=== PATIENT | male | born 1940 | race Caucasian/White ===

== ENCOUNTER 2019-10-25 11:05 | Inpatient (IN) | payer MEDICARE ==
[~2019-10-25] VITALS: Ht 167.6 cm; Wt 87.0 kg
[~2019-10-25 11:05] MED LIST: ASPIRIN EC81 MG PO; ATORVASTATIN CA20 MG PO; CIPRO XR500 M2 PO; CIPROFLOXACIN250 MG PO; CIPROFLOXACN500 MG PO; DILAUDID 2MG2 MG/TA1 PO; DITROPAN PO; FISH OIL1000 MG PO; GLIPIZIDE10 MG PO; JANUVIA100 MG PO; LANTUS100 MG/ML SC; LISINOPRIL20 MG PO; LORTAB 5/3255 MG PO; METFORMIN500 MG PO
--- NOTE | 2019-10-25 11:36 | NUR ---
PT TO ROOM 14 W/STEADY GAIT.
--- NOTE | 2019-10-25 12:00 | NUR ---
DR LYON AT BEDSIDE FOR ASSESSMENT
--- NOTE | 2019-10-25 12:45 | NUR ---
PT STARTED PO CONTRAST AT THIS TIME; TEACHING PROVIDED; MONITORING DEVICES IN PLACE; VSS; CALL LIGHT WITHIN REACH; WILL CONTINUE TO MONITOR
[2019-10-25 12:53] LABS: HEMOGLOBIN 14.5 g/dl (14.0-18.0); IMMATURE GRANULOCYTES 0.6 % (0.0-5.0); MEAN CORPUSCULAR HGB 32.7 pG CALC (26.0-32.0); NEUT# 8.89 thou/uL (1.82-7.42); RED BLOOD COUNT 4.44 mill/uL (4.70-6.10); RED CELL DISTRI WIDTH 13.3 % (11.5-15.5)
[2019-10-25 12:57] LABS: MEAN CELL VOLUME 99.1 fL CALC (80.0-100.0)
[2019-10-25 13:07] LABS: ALBUMIN 4.9 g/dL (3.2-5.0); POTASSIUM 3.9 mmol/l (3.5-5.1)
[2019-10-25 13:08] LABS: BILIRUBIN, TOTAL 0.6 mg/dL (0.0-1.4); CREATININE 2.6 mg/dL (0.7-1.3); TOTAL PROTEIN 9.2 g/dL (6.3-8.2)
--- NOTE | 2019-10-25 13:28 | NUR ---
PT DRINKING PO CONTRAST; TOLERATING WELL; VSS; PT ADVISED OF CONTINUED WAIT TIME; DENIES ABD PAIN OR N/V AT THIS TIME; CALL LIGHT WITHIN REACH; WILL CONTINUE TO MONITOR
--- NOTE | 2019-10-25 13:50 | NUR ---
PT MEDICATED AT THIS TIME FOR NAUSEA PER MAR;
[2019-10-25] MEDS ORDERED: NOVOLIN 70/30 F1 INJ SC (13:53)
[2019-10-25] MEDS ORDERED: FERRAPLUS 90 PO (13:54)
[2019-10-25] MEDS ORDERED: B COMPLE2 PO (13:55)
[2019-10-25] MEDS ORDERED: AMLODIPINE BESY10 MG PO (13:55)
[2019-10-25] MEDS ORDERED: SERTRALINE25 MG PO (13:56)
--- NOTE | 2019-10-25 14:50 | NUR ---
PT TO CT AT THIS TIME IN STABLE CONDITION
--- NOTE | 2019-10-25 16:50 | NUR ---
PT AMB TO BR TO EMPTY COLOSTOMY; AMB WITH STEADY GAIT
--- NOTE | 2019-10-25 17:50 | NUR ---
PT ADVISED OF CONTINUED WAIT TIME; DENIES ANY PAIN, N/V
--- NOTE | 2019-10-25 18:10 | NUR ---
Admission Note Report Given to: JOSE VASQUEZ Transported by: X Wheelchair Stretcher Transported with: X Nurse Transporter X Patent IV O2 [employer] Worker Location: ICU X [facility]
--- NOTE | 2019-10-25 18:21 | NUR ---
REPORT RECEIVED FROM MABEL IN ED, PT ARRIVED ON UNIT @ 181 TRANSPORTED BY ED STAFF VIA W/C AND SETTLED IN BED. ALERT AND ORIENTED X 3, DENIES PAIN AT THIS TIME, ORIENTED TO ROOM AND CALL [facility]. COLOSTOMY IN PLACE TO LEFT ABDOMEN AND UROSTOMY IN PLACE TO R. ABD. NEEDS ADDRESS, WILL CONTINUE TO MONITOR.
[2019-10-25 19:25] VITALS: BP 131/74
--- NOTE | 2019-10-25 19:44 | NUR ---
PT C/O BEING VERY THIRSTY AND REQUESTING ICE CHIPS, NO IVF ORDERED, DR TREJO CONTACTED VIA PHONE, GAVE ORDERS FOR IV FLUIDS AND CLEAR LIQUID DIET.
--- NOTE | 2019-10-25 20:20 | NUR ---
PT RESTING IN BED, NO SIGNS OF DISTRESS NOTED, RESP EVEN AND UNLABORED. PT ALERT AND ORIENTED X3, DISCUSSED POC, PT DENIES ANY PAIN OR DISCOMFORT AT THIS TIME. STATES HE HAS HAD 5 BM'S SINCE ORAL CONTRAST. DAYSHIFT SPOKE WITH MAYA, DIET INCREASED TO CLEAR. PT APPRECIATIVE. PT HAS AN ILEOSTOMY AND UROSTOMY. ASSESSMENT COMPLETED. CALL LIGHT IN REACH,CONTINUE TO MONITOR.
--- NOTE | 2019-10-25 22:46 | NUR ---
URINE SPECIMEN SENT TO LAB.
[2019-10-25 22:59] LABS: URINE BILIRUBIN - DIPSTICK NEGATIVE (NEGATIVE); URINE BLOOD DIPSTICK SMALL (NEGATIVE); URINE COLOR YELLOW; URINE GLUCOSE - DIPSTICK NEGATIVE (NEGATIVE); URINE KETONE NEGATIVE (NEGATIVE); URINE PH 6.5 (4.5-8.0); URINE PROTEIN - DIPSTICK >=300 mg/dL (NEG-TRACE); URINE UROBILINOGEN - DIPSTICK 0.2 E.U./dL (0.2)
[2019-10-25 23:06] LABS: URINE LEUK ESTERASE MODERATE (NEGATIVE)
[2019-10-25 23:07] LABS: URINE BACTERIA MANY hpf; URINE EPITHELIAL CELLS MODERATE EPI/hpf (0-FEW); URINE NITRITE - DIPSTICK NEGATIVE (Negative); URINE WBC >100 WBC/hpf (0-5)
--- NOTE | 2019-10-26 | NUR ---
PT RESTING IN BED WATCHING TV, VOICES NO NEEDS OR COMPLAINTS AT THIS TIME, CALL LIGHT IN REACH,CONTINUE TO MONITOR.
[2019-10-26 03:45] VITALS: BP 105/59
--- NOTE | 2019-10-26 03:51 | NUR ---
PT RESTING IN BED, VOICES NO NEEDS OR COMPLAINTS AT THIS TIME, APPLE JUICES PROVIDED PER REQUEST. CALL LIGHT IN REACH,CONTINUE TO MONITOR.
[2019-10-26 07:30] VITALS: BP 119/65
--- NOTE | 2019-10-26 08:45 | NUR ---
PT IS SITTING IN COUCH. DR. TREJO IN ROOM TO ASSESS PT AND DISCUSS POC. ASSESSMENT DONE. PT IS A&O X3. PT DENIES PAIN AT THIS TIME. IVF INFUSING WELL. PT DENIES NEEDS AT THIS TIME. CALL LIGHT IN REACH.
[2019-10-26 08:46] LABS: ALBUMIN 4.5 g/dL (3.2-5.0); BILIRUBIN, TOTAL 0.7 mg/dL (0.0-1.4); CREATININE 2.6 mg/dL (0.7-1.3); POTASSIUM 3.9 mmol/l (3.5-5.1); TOTAL PROTEIN 8.3 g/dL (6.3-8.2)
--- NOTE | 2019-10-26 12:13 | NUR ---
PT IS SITTING IN COUCH. PT DENIES PAIN AT THIS TIME OR NEEDS . CALL LIGHT IN REACH.
[2019-10-26 14:16] VITALS: BP 120/65
--- NOTE | 2019-10-26 16:16 | NUR ---
PT IS RESTING IN BED WITH NO S/S OF DISTRESS NOTED. PT DENIES ANY NEEDS AT THIS TIME. CALL LIGHT IN REACH.
--- NOTE | 2019-10-26 17:10 | NUR ---
PT AMBULATING IN THE HALLWAYS WITH A STEADY GAIT. AT SIDE.
[2019-10-26 19:00] VITALS: BP 151/74
--- NOTE | 2019-10-26 19:20 | NUR ---
ASSESSMENT COMPLETED. NO DISTRESS NOTED. DENIES NEEDS/PAIN. SITTING UP IN CHAIR. IV SITE PATENT AND SL. BS ACTIVE. ILLEOSTOMY AND UROSTOMY TO ABD INTACT. PER PT. HE WILL CHANGE THEM OUT TONIGHT. ENCOURAGED TO CALL FOR ANY NEEDS. CALL LIGHT IS IN REACH.
--- NOTE | 2019-10-26 21:10 | NUR ---
SCHED INSULIN GIVEN. DENIES NEEDS/PAIN. PT. ALREADY ATE SNACK.
--- NOTE | 2019-10-26 23:26 | NUR ---
PT. RESTING IN BED ON LEFT SIDE WITH NO DISTRESS NOTED. DENIES NEEDS. CALL LIGHT IS IN REACH.
--- NOTE | 2019-10-27 02:09 | NUR ---
RESTING IN BED ON RIGHT SIDE WITH EYES CLOSED; RESP. EVEN AND UNLABORED.
[2019-10-27 04:21] VITALS: BP 99/53
[2019-10-27 07:15] VITALS: BP 132/66
--- NOTE | 2019-10-27 07:15 | NUR ---
PT RESTING IN BED, NO SIGNS OF DISTRESS NOTED, RESP EVEN AND UNLABORED. PT ALERT AND ORIENTED X3, DISCUSSED POC. PT DENIES ANY PAIN OR NEEDS AT THIS TIME. PT HAS AN ILEOSTOMY TO ABD, UROSTOMY CONNECTED TO DINH BAG AT BEDSIDE. ASSESSMENT COMPLETED, CALL LIGHT IN REACH,CONTINUE TO MONITOR.
--- NOTE | 2019-10-27 12:00 | NUR ---
PT RESTING IN COUCH AT BEDSIDE, IV ROCEPHIN INFUSION COMPLETED. IV SL, PT VOICES NO NEEDS OR COMPLAINTS AT THIS TIME. 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 CONTINUE TO MONITOR, CALL LIGHT IN REACH.
--- NOTE | 2019-10-27 12:20 | NUR ---
PT SITTING IN RECLINER AT BEDSIDE, VOICES NO NEEDS OR COMPLAINTS AT THIS TIME, IV VANCO 1GM INFUSING. CALL LIGHT IN REACH,CONTINUE TO MONITOR.
--- NOTE | 2019-10-27 14:53 | NUR ---
AND BETTINA AT BEDSIDE DISCUSSING POC.
[2019-10-27 15:39] VITALS: BP 118/67
--- NOTE | 2019-10-27 16:00 | NUR ---
PT SITTING IN CHAIR AT BEDSIDE, DISCUSSED MIRALAX, PT AGREES. MIRALAX GIVEN. DISCUSSED POSSIBILITY OF DISCHARGE TOMORROW, PT VERBALIZED UNDERSTANDING. CALL LIGHT IN REACH,CONTINUE TO MONITOR.
--- NOTE | 2019-10-27 17:23 | NUR ---
PT SITTING ON COUCH, PT VOICES NO NEEDS OR COMPLAINTS AT THIS TIME. INSULIN GIVEN. NO BM AT THIS TIME. CALL LIGHT IN REACH,CONTINUE TO MONITOR.
[2019-10-27 18:46] VITALS: BP 145/70
--- NOTE | 2019-10-27 19:18 | NUR ---
PT HAD A BM, MOTOR PATROL OPERATOR NOTIFIED.
--- NOTE | 2019-10-27 19:20 | NUR ---
PT SITTING IN CHAIR. A&O X3. NO DISTRESS NOTED. PT DENIES ANY PAIN AT THIS TIME. PER PT HE HAS HAD 2 BM TODAY. NO OTHER NEEDS AT THIS TIME. DISCUSSED POC. ASSESSMENT COMPLETED. CALL LIGHT IN REACH. CONTINUE TO MONITOR.
--- NOTE | 2019-10-27 23:03 | NUR ---
PT SLEEPING IN BED. NO DISTRESS NOTED. CONTINUE TO MONITOR.
--- NOTE | 2019-10-28 02:33 | NUR ---
PT SLEEPING IN BED. NO DISTRESS NOTED. CONTINUE TO MONITOR.
[2019-10-28 04:18] VITALS: BP 108/55
[2019-10-28 04:47] LABS: IMMATURE GRANULOCYTES 0.7 % (0.0-5.0); MEAN CELL VOLUME 98.6 fL CALC (80.0-100.0); MEAN CORPUSCULAR HGB 32.5 pG CALC (26.0-32.0); NEUT# 4.49 thou/uL (1.82-7.42); RED BLOOD COUNT 3.69 mill/uL (4.70-6.10)
[2019-10-28 04:51] LABS: HEMATOCRIT 36.4 % (39.0-50.0)
[2019-10-28 05:04] LABS: CREATININE 2.4 mg/dL (0.7-1.3); MAGNESIUM 1.5 mg/dL (1.6-2.3); POTASSIUM 4.1 mmol/l (3.5-5.1)
[2019-10-28 07:55] VITALS: BP 119/54
--- NOTE | 2019-10-28 07:55 | NUR ---
ASSESSMENT IS COMPLETED: IV SITE IS FREE FROM REDNESS OR EDMEA. HR IS REG,PULSES ARE STRONG X4, ABD IS SOFT WITH ACTIVE BS. NO DISTRESS NOTED. COLOSTOMY BAG IN PLACE. UROSTOMY BAG IN PLACE. BREATH SOUNDS ARE CLEAR,BILATERALLY,. CONTINUE TO OBSERVE AND MONITOR.
[2019-10-28 08:55] VITALS: BP 119/54
--- NOTE | 2019-10-28 12:00 | NUR ---
PT IS RELAXING IN THE CHAIR,. NO DISTRESS NTOED. IV SITE IS FREE FROM REDNESS OR EDEMA.
[2019-10-28] MEDS ORDERED: KEFLEX500 MG PO (13:11)
--- NOTE | 2019-10-28 14:35 | NUR ---
IV SITE DISCONITINEUD CATHETER INTACT.N O REDNESS OR EDEMA. DISCHARGE INSTRUCTIONS GIVEN AND PT AND FAMILY AMBULATED OFF THE UNIT. CONTINUE TO OSBERVE AND MONIOTOR. Discharge instructions given. Patient verbalizes understanding of same. Discharged in stable condition via Ambulatory to Home with family. All belongings sent with pt.
== END 2019-10-28 14:36 | disposition home or self-care (01) | DRG 389 ==
LOC: ED 11:05 → ED-I 15:50 → ED 16:12 → MS2 16:13
PROVIDERS: Family Medicine; Nurse Practitioner Family; ADMIT Internal Medicine; ATTEND Internal Medicine
DX: K56.600 Partial intestinal obstruction, unspecified as to cause (principal); T83.518A Infection and inflammatory reaction due to other urinary catheter, initial encounter; K94.09 Other complications of colostomy; E11.22 Type 2 diabetes mellitus with diabetic chronic kidney disease; I12.9 Hypertensive chronic kidney disease with stage 1 through stage 4 chronic kidney disease, or unspecified chronic kidney disease; N18.3 Chronic kidney disease, stage 3 (moderate); I25.10 Atherosclerotic heart disease of native coronary artery without angina pectoris; N99.523 Herniation of incontinent stoma of urinary tract; I25.2 Old myocardial infarction; E78.5 Hyperlipidemia, unspecified; B96.20 Unspecified Escherichia coli [E. coli] as the cause of diseases classified elsewhere; Y83.3 Surgical operation with formation of external stoma as the cause of abnormal reaction of the patient, or of later complication, without mention of misadventure at the time of the procedure; Z92.3 Personal history of irradiation; Z79.4 Long term (current) use of insulin; Z85.51 Personal history of malignant neoplasm of bladder; Z85.528 Personal history of other malignant neoplasm of kidney; Z90.6 Acquired absence of other parts of urinary tract; Z90.49 Acquired absence of other specified parts of digestive tract; Z90.5 Acquired absence of kidney; Z95.5 Presence of coronary angioplasty implant and graft; Z87.891 Personal history of nicotine dependence
CPT/HCPCS: J3475